=== PATIENT | male | born 1960 | race Caucasian/White ===

== ENCOUNTER 2022-09-08 15:15 | Outpatient (CLI) | payer BC ==
[2022-09-08 15:42] LABS: BASOPHILS % (AUTO) 0.8 %; EOSINOPHILS # (AUTO) 0.1 10^3/uL (0.0-0.7); EOSINOPHILS % (AUTO) 1.9 %; HCT - HEMATOCRIT 43.8 % (42.0-52.0); LYMPHOCYTES # (AUTO) 1.2 10^3/uL (1.5-3.5); LYMPHOCYTES % (AUTO) 24.7 %; MEAN CORPUSCULAR HEMOGLOBIN 27.5 pg (27.0-31.0); MEAN CORPUSCULAR VOLUME 85.9 fL (80.0-94.0); MEAN PLATELET VOLUME 9.8 fL (7.4-11.4); MONOCYTES # (AUTO) 0.4 10^3/uL (0.0-1.0); NEUTROPHILS # (AUTO) 3.1 10^3/uL (1.5-6.6); NEUTROPHILS % (AUTO) 64.6 %; PLT - PLATELET COUNT 271 10^3/uL (130-450); RED CELL DISTRIBUTION WIDTH 14.5 % (12.0-15.0); WHITE BLOOD COUNT 4.7 x10^3/uL (4.8-10.8)
[2022-09-08 16:03] LABS: ALBUMIN 4.3 g/dL (3.2-5.5); ALBUMIN/GLOBULIN RATIO 1.1 (1.0-2.2); ALKALINE PHOSPHATASE 64 IU/L (42-121); ALT ALANINE AMINOTRANSFERASE 16 IU/L (10-60); AST ASPARTATE AMINOTRANSFERASE 12 IU/L (10-42); BILIRUBIN,TOTAL 0.6 mg/dL (0.2-1.0); BUN - BLOOD UREA NITROGEN 25 mg/dL (6-20); CALCIUM 9.5 mg/dL (8.5-10.3); CARBON DIOXIDE - CO2 26 mmol/L (21-32); CHLORIDE 104 mmol/L (101-111); CHOL/HDL RATIO 3.8 (<5.0); CHOLESTEROL 141 mg/dL; CK- CREATINE KINASE 104 IU/L (30-223); CREATININE 0.9 mg/dL (0.6-1.3); GFR - MDRD 86 (>89); GLUCOSE 96 mg/dL (74-104); HDL CHOLESTEROL 37 mg/dL; LDL CHOLESTEROL,CALCULATED 84 mg/dL; LDL/HDL RATIO 2.3 (<3.6); POTASSIUM 4.2 mmol/L (3.5-4.5); SODIUM 137 mmol/L (135-145); TOTAL PROTEIN 8.1 g/dL (6.4-8.9); TRIGLYCERIDES 100 mg/dL (48-352); VLDL CHOLESTEROL 20 mg/dL
[2022-09-08 16:15] LABS: THYROID STIMULATING HORMONE 1.11 uIU/mL (0.34-5.60)
[2022-09-08 16:23] LABS: RHEUMATOID FACTOR NEGATIVE (Negative)
--- NOTE | 2022-09-08 18:17 | XRAY Report ---
PROCEDURE: Hand 2 View BILAT INDICATIONS: POLYARTHRALGIA, PSORIASIS TECHNIQUE: 2 views of the bilateral hand(s) acquired. COMPARISON: None. FINDINGS: Bones: Bilateral periarticular osteopenia. Bilateral radiocarpal joint narrowing. There is degenerat akiko arthritis at the first carpometacarpal joints bilaterally. No erosive changes are identified invo lving the carpal bones. No subluxations. No erosions or joint space loss noted involving the hands. Soft tissues: No suspicious soft tissue calcifications or masses. IMPRESSION: 1. Periventricular osteopenia is freely seen in inflammatory arthritis. 2. Bilateral radiocarpal joint space loss and bilateral degenerative arthritis at the base of the natalia mbs. Reviewed by: Nba Reich MD on 09/08/2022 6:16 PM PDT Approved by: Nba Reich MD on 09/08/2022 6:16 PM PDT Station ID: [id number]
[2022-09-09 22:07] LABS: CYCLIC CITRULLINATED PEP IGG/A 4 units (0-19)
[2022-09-11 15:08] LABS: ANTINUCLEAR ANTIBODIES IFA Negative (.)
== END 2022-09-08 15:16 | disposition home or self-care (01) ==
LOC: DI 15:15
PROVIDERS: ATTEND Physician Assistant
DX: M18.0 Bilateral primary osteoarthritis of first carpometacarpal joints (principal); M85.842 Other specified disorders of bone density and structure, left hand; M85.841 Other specified disorders of bone density and structure, right hand; M19.041 Primary osteoarthritis, right hand; M19.042 Primary osteoarthritis, left hand; L40.9 Psoriasis, unspecified; I10 Essential (primary) hypertension; M79.10 Myalgia, unspecified site; E78.5 Hyperlipidemia, unspecified; M25.50 Pain in unspecified joint
CPT/HCPCS: 36415; 80053; 80061; 82550; 83721; 84443; 85025; 86038; 86200; 86430

== ENCOUNTER 2022-10-17 11:48 | Outpatient (CLI) | payer BC ==
[2022-10-17 12:12] LABS: BASOPHILS % (AUTO) 0.9 %; EOSINOPHILS # (AUTO) 0.1 10^3/uL (0.0-0.7); EOSINOPHILS % (AUTO) 2.2 %; HCT - HEMATOCRIT 42.5 % (42.0-52.0); HGB - HEMOGLOBIN 13.7 g/dL (14.0-18.0); LYMPHOCYTES # (AUTO) 1.1 10^3/uL (1.5-3.5); LYMPHOCYTES % (AUTO) 24.3 %; MEAN CORPUSCULAR HEMOGLOBIN 28.1 pg (27.0-31.0); MEAN CORPUSCULAR HGB CONC 32.2 g/dL (32.0-36.0); MEAN CORPUSCULAR VOLUME 87.1 fL (80.0-94.0); MEAN PLATELET VOLUME 9.5 fL (7.4-11.4); MONOCYTES # (AUTO) 0.3 10^3/uL (0.0-1.0); MONOCYTES % (AUTO) 6.6 %; NEUTROPHILS % (AUTO) 65.8 %; PLT - PLATELET COUNT 211 10^3/uL (130-450); RED BLOOD COUNT 4.88 10^6/uL (4.70-6.10); RED CELL DISTRIBUTION WIDTH 16.4 % (12.0-15.0); WHITE BLOOD COUNT 4.6 x10^3/uL (4.8-10.8)
[2022-10-17 12:39] LABS: ALBUMIN 4.3 g/dL (3.2-5.5); ALBUMIN/GLOBULIN RATIO 1.4 (1.0-2.2); BILIRUBIN,TOTAL 0.6 mg/dL (0.2-1.0); CALCIUM 9.6 mg/dL (8.5-10.3); CRP - C-REACTIVE PROTEIN 1.4 mg/dL (<0.5); POTASSIUM 4.2 mmol/L (3.5-4.5); TOTAL PROTEIN 7.4 g/dL (6.4-8.9)
[2022-10-18 03:09] LABS: HBsAG SCREEN Negative (Negative); HCV AB Non Reactive (Non Reactive)
== END 2022-10-17 11:49 | disposition home or self-care (01) ==
LOC: LAB 11:48
PROVIDERS: ATTEND Internal Medicine Rheumatology
DX: L40.50 Arthropathic psoriasis, unspecified (principal)
CPT/HCPCS: 36415; 80053; 81599; 85025; 85651; 86140; 86480; 86803; 87340

== ENCOUNTER 2022-10-25 10:39 | Outpatient (CLI) | payer BC ==
--- NOTE | 2022-10-25 11:03 | CARDIAC PROCEDURE NOTE ---
Stress Test Report Service Date: 10/25/22 Service Time: 11:00 Ordering Provider: Brooklyn Saha PA-C Indication for Test: Assess for inducible ischemia in a gentleman with atypical chest pain in the setting of psoriatic arthritis and a significant cardiac risk factor profile. 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 He experienced onset of a constant aching substernal chest pressure in early 2022 that lasted for several weeks. Although there was some waxing and waning of the intensity of his discomfort, there has been no correlation with exercise, rather it has been increased by coughing or sneezing. Surveillance EKGs did not show concerning changes. He was seen by his Insurance Loss Control Surveyor, who initiated methotrexate and he describes significant decrease of his general musculoskeletal pains and full resolution, without recurrence, of his chest discomfort. He remains active in his profession and does a lot of hiking in his spare time, including recently to high altitude at [place] last week, without recurrence of symptoms. His history is also notable for a small stroke with PFO reported back in ~2015 with no anticoagulant treatment or consideration for closure of the atrial defect. He also describes increasing fatigue over the past several months and is scheduled for a sleep evaluation to assess him for obstructive sleep apnea. He does not have a bed partner to inform regarding severity of snoring and possible apneas. Cardiac Risk Factors: Positive for history of hypertension and hyperlipidemia (both treated for the past ~1.5 yrs), as well as father with premature CAD (CABG in early 50's) and active pipe smoking of tobacco. Negative for known diabetes. Type of Stress Test: ETT with Echocardiography Procedure: -Exercise Treadmill Test- After signing informed consent, the patient underwent echo imaging at rest and then performed treadmill exercise using a Gerber protocol. The patient exercised for 9 minutes 13 seconds and achieved a peak heart rate of 146 (91 percent predicted maximum heart rate for age), and an estimated workload of 10.5 METS. The test was terminated due to fatigue/shortness of breath. Resting heart rate: 75 Peak heart rate: 146 Normal response to exercise. Resting BP: 112/78 Peak BP: 185/88 Normal BP response to exercise. Rhythm during exercise: Sinus rhythm throughout without detection of ectopic beats. Symptoms: He denied any chest pressure/discomfort/pain whatsoever. EKG at rest showed normal sinus rhythm with possible left atrial abnormality, but otherwise fully normal with interpretable ST/T pattern. EKG at peak stress showed J-point depression with upsloping ST segments, NOT meeting diagnostic EKG criteria for ischemia. In Recovery heart rate and BP rapidly/normally decreased towards resting levels (HR 82, BP 144/71 at 7:00). Echo imaging, performed at rest and with stress, will be reported separately. IWillam MD, was present throughout this treadmill stress study and supervised it in its entirety. Summary: 1) Exercise tolerance above average for age and sex as evidenced by DANDY of -8%. 2) Normal resting EKG. 3) Adequate level of exercise was achieved on this treadmill stress test. 4) Normal BP response to exercise. 5) No ischemic changes by EKG criteria were seen at peak stress. 6) Echo image interpretation reveals normal left ventricular size, wall thickness and systolic function, with appropriate hyperdynamic augmentation of all segments with exercise, indicating no evidence of prior infarct or inducible ischemia. No significant valvular abnormality or elevation of estimated pulmonary artery systolic pressure seen on screening study. See separate report for more details. Conclusions and Recommendations: 1) Reassuring treadmill stress echocardiogram study, without symptom, EKG or echocardiographic evidence of inducible ischemia. 2) Rahul did mention some prior discussion of whether rosuvastatin may have been increasing his MSK discomfort, but with overall decrease in these symptoms following initiation of MTX treatment (and with recent LDLc level successfully lowered to 84) it seems reasonable to keep his daily statin dosing. We discussed that if his mucle achiness should increase in the future for better toleration it may be reasonable to decrease the statin dosing frequency to every other, or even every 3, days, as lipid responses may remain stable along with presumed clinical benefit, due to rosuvastatin's long half-life and durable responses.
== END 2022-10-25 10:40 | disposition home or self-care (01) ==
LOC: DI 10:39
PROVIDERS: ATTEND Physician Assistant
DX: Q21.12 Patent foramen ovale (principal); I20.8 Other forms of angina pectoris; R53.83 Other fatigue; R06.09 Other forms of dyspnea; R06.02 Shortness of breath; L40.50 Arthropathic psoriasis, unspecified; E78.5 Hyperlipidemia, unspecified; I10 Essential (primary) hypertension; K21.9 Gastro-esophageal reflux disease without esophagitis; Z72.0 Tobacco use; Z86.73 Personal history of transient ischemic attack (TIA), and cerebral infarction without residual deficits; Z79.631 Long term (current) use of antimetabolite agent; Z79.899 Other long term (current) drug therapy; Z82.49 Family history of ischemic heart disease and other diseases of the circulatory system
CPT/HCPCS: 93350

== ENCOUNTER 2022-10-25 13:09 | Outpatient (CLI) | payer BC ==
--- NOTE | 2022-10-25 13:46 | Sleep Patient Instructions ---
Sleep Center Visit Summary - Patient Visit Information Reason for Visit: Initial consult for evaluation of sleep disordered breathing and other sleep issues. - Patient Instructions Instructions Attached: Sleep Study, Sleep Clinic Visit, Sleep Study Home Monitor Additional Instructions: You will be completing a sleep study, either an in-lab polysomnography (PSG) or home sleep study (HST). You will follow-up in the sleep care office after the sleep study is completed to hear the results and talk about therapy, if needed. You will be called by our office staff to schedule this appointment, but you may contact us with any questions. - Clinic Information Contact: [facility] [address] [place] [address] [email or web address] T: [phone]
--- NOTE | 2022-10-25 13:52 | SLEEP CARE CONSULTATION ---
Information from patient questionnaire entered by Carol Ann Luna. I have reviewed and concur with the information entered by Carol Ann Luna. This document represents the service I personally performed and the decisions made by me, Indira Field ARNP. History of Present Illness Service Date and Time: 10/25/2022 1309 Reason for Visit: New patient Chief Complaint: reports: Excessive daytime sleepiness, Fatigue, Frequent awakenings at night Date of Onset: 2YRS Usual bedtime: 930PM Time it takes to fall asleep: 2MIN Snores at night: Yes Observed to quit breathing while asleep: No Number of times waking at night: 2-3 Reasons for waking at night: reports: Gasping for air (only when sitting in his truck; not in his bed; he uses a neck rolled pillow to sleep with in bed), Bathroom, Other (UNKNOWN; "to worry"). denies: Choking Toss, Turn, or Twitch while sleeping: No Recalls having dreams: Yes (1 vivid dream monthly) Usually gets out of bed at: 6AM Feels refreshed in the morning: No Morning headache: No Sleepy or fatigued during the day: Yes Ever fallen asleep while driving: No (some drowsy driving; no accidents) Takes day naps: Yes (2-3 weekly; for about 20 minutes) Dreams during day naps: No Prior sleep studies: No Additional HPI information: I had the pleasure of seeing EDOUARD ESPOSITO today regarding the possibility of him having a sleep disorder. His current complaints are excessive daytime sleep iness, fatigue and frequent night awakenings. Since the beginning of year or more, he has been having body aches, fatigue and daytime sleepiness. He has been told that he snores but no one has noted pauses in breathing. He saw his doctor and was set up with some evaluations, this being one of them. He was diagnosed with psoriatic arthritis and was started on methotrexate which has greatly improved his body pains. He is still very tired and fatigued throughout the day. He would take a nap every day if he could but only manages 20 minute naps 2-3 days a week. He does not wake up feeling refreshed in the mornings. He does get drowsy driving but always pulls over and has never had an accident. - Parasomnia Symptoms Ever been unable to move upon waking from sleep: Yes (occasional, will cause yelling in his sleep) Walks in sleep: No Talks in sleep: Yes (with vivid dreams) Ever acted out dreams in sleep: No Ever felt weak in the knees when startled or emotional: Yes (a few times; felt legs get weaking; thinks he fell once) Bothered by creepy, crawly, restless sensations in legs: No Problems with memory or concentration: Yes ("getting scatter brained") Subjective Initial [place] Sleepiness Scale score: 21 (10/25/22) Past Medical History Past Medical History: reports: Hypertension, Arthritis (psoriatic arthritis), Other (high cholesterol) Social History 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 Patient is Single and lives in . Have you smoked in the past 12 months: No Alcohol use: Yes Alcohol amount and frequency: 5 A WEEK Caffeine use: Yes Caffeine amount and frequency: COFFEE AM TEA PM 1 EACH A DAY Family History Family history of sleep disordered breathing: No Allergies and Home Medications Known drug allergies: No Drug allergies reviewed: Yes Home medication list reviewed: Yes Allergy and home medication list: Allergies No Known Drug Allergies Allergy (Verified 10/25/22 13:23) Home Medications Folic Acid See Rx Instructions .ROUTE .COMPLEX 10/25/22 [History] Lisinopril [Zestril] See Rx Instructions .ROUTE .COMPLEX 10/25/22 [History] Twisp [Twisp Carbonate] See Rx Instructions .ROUTE .COMPLEX 10/25/22 [History] Methotrexate [Methotrexate Sodium] See Rx Instructions .ROUTE .COMPLEX 10/25/22 [History] Mv-Min/Folic/K1/Lycopen/Lutein [Centrum Silver Men Tablet] See Rx Instructions .ROUTE .COMPLEX 10/25/22 [History] Naproxen Sodium [Aleve] See Rx Instructions .ROUTE .COMPLEX 10/25/22 [History] Rosuvastatin Calcium [Crestor] See Rx Instructions .ROUTE .COMPLEX 10/25/22 [History] Review of Systems Cardiovascular: reports: high blood pressure Respiratory: denies: shortness of breath Gastrointestinal: denies: heartburn Urinary: reports: frequency Psychiatric: denies: anxiety, depression Ear/Nose/Throat: reports: injury to nose (broken nose several times in past), wisdom teeth removed. denies: tonsillectomy Endocrine: reports: increased urination Musculoskeletal: reports: joint pain, joint swelling Physical Exam Vital signs obtained and entered by: CAROL ANN Ortega MA Blood Pressure: 108/64 (LEFT ARM) Cuff size: long Heart Rate: 86 O2 Saturation: 93 Height: 5 ft 10 in Weight: 215 lb 3.2 oz Body Mass Index: 30.9 BMI Classification: Obese Neck circumference: 17 Mouth and throat: narrow oropharynx Soft palate: long Hard palate: normal Uvula: long Uvula visualization: 50% Mallampati Class II Tongue: normal in size Tonsils: small Neck: normal w/o lymphadenopathy or thyromegaly Heart: regular rate and rhythm Lungs: clear bilaterally Impression and Plan 1. Suspected Obstructive Sleep Apnea-Hypopnea Syndrome, as suggested by a history of loud and irregular snoring, frequent awakening during the night, unrefreshed sleep, cognitive impairment, and excessive daytime sleepiness. Narrow oropharynx and obesity are common predisposing factors for obstructive sleep apnea-hypopnea syndrome. I recommend proceeding to polysomnography to confirm the diagnosis and to assess severity. If the patient has significant sleep disordered breathing, a manual CPAP titration study will also be performed to find the optimal treatment pressure. I informed the patient of what the sleep studies involve and after some discussion, obtained agreement to proceed. The pathophysiology of obstructive sleep apnea-hypopnea syndrome was discussed with the patient and health risks of cardiovascular and cerebrovascular disease if not treated. Risks of drowsy driving discussed in detail and patient advised to avoid long distance driving and to pull out operator at the first sign of drowsiness. Patient agreed to plan. * Schedule polysomnography. * Avoid long distance driving or driving when feeling sleepy. * Avoid alcohol, sedative and muscle relaxant around bedtime. * Attempt to lose weight. * Review instructions provided by trained office staff on how to prepare for the sleep study. * Return for follow-up after sleep study completed. Counseling Topics: Weight loss health impact Visit Type: In Office Time Spent with Patient (minutes): 30 Provider Statement: I spent 100% of the Face to Face Visit with the patient with greater than 50% spent counseling the patient and coordination of care.
[2022-10-25 14:00] VITALS: BP 108/64; O2SAT 93
== END 2022-10-25 13:10 | disposition home or self-care (01) ==
LOC: SC 13:09
PROVIDERS: ATTEND Nurse Practitioner Family
DX: G47.10 Hypersomnia, unspecified (principal); R53.83 Other fatigue; G47.8 Other sleep disorders; E66.9 Obesity, unspecified; R06.83 Snoring; I10 Essential (primary) hypertension; Z68.30 Body mass index [BMI] 30.0-30.9, adult; Q21.12 Patent foramen ovale; I20.8 Other forms of angina pectoris; R06.09 Other forms of dyspnea; R06.02 Shortness of breath; L40.50 Arthropathic psoriasis, unspecified; E78.5 Hyperlipidemia, unspecified; K21.9 Gastro-esophageal reflux disease without esophagitis; Z72.0 Tobacco use; Z86.73 Personal history of transient ischemic attack (TIA), and cerebral infarction without residual deficits; Z79.631 Long term (current) use of antimetabolite agent; Z79.899 Other long term (current) drug therapy; Z82.49 Family history of ischemic heart disease and other diseases of the circulatory system
CPT/HCPCS: 93350; 99203; 99212

== ENCOUNTER 2022-11-11 14:32 | Outpatient (CLI) | payer BC | END 2022-11-11 14:33 | disposition home or self-care (01) | LOC: SC 14:32 | PROVIDERS: ATTEND Nurse Practitioner Family | DX: G47.33 Obstructive sleep apnea (adult) (pediatric) (principal); R09.02 Hypoxemia; E66.9 Obesity, unspecified; Z68.30 Body mass index [BMI] 30.0-30.9, adult | CPT/HCPCS: 95806 ==

== ENCOUNTER 2023-01-13 14:29 | Outpatient (CLI) | payer BC ==
--- NOTE | 2023-01-13 14:57 | SLEEP CARE CONSULTATION ---
Information from patient questionnaire entered by Sailaja Luna. I have reviewed and concur with the information entered by Sailaja Luna. This document represents the service I personally performed and the decisions made by , Indira Field ARNP. History of Present Illness Service Date and Time: 01/13/20231428 Initial [place] Sleepiness Scale score: 21 (10/25/22) Current [place] Sleepiness Scale score: 17 (01/13/23) Additional HPI information: EDOUARD ESPOSITO returns via video appointment for follow up and results of the recently performed home sleep study. The sleep study showed moderate obstructive sleep apnea with an average AHI of 20.9 and shira oxygen saturation of 82%. I explained the pathophysiology behind obstructive sleep apnea. We then spent quite a bit of time discussing different treatment options. For mild ob structive sleep apnea, surgery and oral appliance are alternatives to nasal CPAP therapy but in moderate or severe cases, nasal CPAP is the most effective and reliable treatment. I reviewed the impact of weight changes on sleep apnea and strongly recommended losing weight. After some discussion, the patient opted to go with the nasal CPAP therapy. Nasal autoCPAP set at 4-15 cmH20 will be ordere d with rationale explained. A manual titration study will be ordered if unable to find optimal pressure with office adjustments. I explained how CPAP machine works and what to expect when using the machine. Using CPAP every night in order to get used to it was emphasized. Patient advised to put CPAP mask on before getting into bed so as not to fall asleep without CPAP. To assist acclimation to CPAP use, it could also be used for a short time during day while reading or watching TV. The patient was instructed to call the CPAP supplier to discuss any mechanical problem that may occur. If the mask given is uncomfortable or is difficult to keep on through the night even with adjustment, contact the CPAP supplier as many will replace with another mask style if notified before 30 days. If snoring or perceives is not getting enough air or too much air from the machine, notify this office. Patient counseled not drink alcohol less than 4 hours before bedtime as it can increase snoring and apnea. Patient was cautioned about risks of drowsy driving until sleepiness symptoms resolve. Sleep Study - Results Type of Sleep Study: Home sleep study (COMPLETED 11/13/22) Prior sleep studies: No Polysomnography/Home Sleep Study results: Physician Impression: The quality of the study is good. The length of the study is adequate (> 240 minutes). Please also see the tabulated and graphic data. 1. Obstructive Sleep Apnea-Hypopnea (ICD-10 G47.33), moderate, with an AHI of 20.9/hr and shira SaO2 of 82%. During the study, the patient had 122 apneas (122 obstructive, 0 central, 0 mixed) and 50 hypopneas. The longest episode lasted 113.0 seconds. The respiratory events occurred more frequently during supine sleep (supine AHI was 32.8 and non-supine, 8.84). 2. Hypoxemia (ICD-10 R09.02), mild, with the lowest oxygen saturation of 82 % and 79.5 minutes with SaO2 under 90%. Baseline oxygen saturation was normal (Average oxygen saturation was 91%). Allergies and Home Medications Known drug allergies: No Drug allergies reviewed: Yes Home medication list reviewed: Yes Allergy and home medication list: Allergies No Known Drug Allergies Allergy Review of Systems Review of systems same as previous: Yes (NO CHANGE) Physical Exam Vital signs obtained and entered by: SAILAJA Ortega MA Height: 5 ft 9 in (PER PT) Weight: 210 lb (PER PT) Body Mass Index: 31.0 BMI Classification: Obese Impression and Plan 1. Obstructive Sleep Apnea-Hypopnea Syndrome, moderate, with lowest oxygen saturation of 82%. Obviously this is the cause of the patients symptoms of unrefreshed sleep, and excessive daytime sleepiness. Positive pressure therapy could benefit hypertension. As mentioned above, the patient will be started on nasal autoCPAP therapy with pressure set at 4-15 cmH2O. A manual titration study will be completed if unable to find optimal treatment pressure with office adjustments. Compliance guidelines also reviewed. A copy of compliance guidelines will be given for reference at check out. Because the apnea is more severe supine, I instructed to avoid sleeping supine using pillow positioning until able to start CPAP use. 2. Hypoxemia, mild, with a shira oxygen saturation of 82% and 79.5 minutes spent under 90%. The baseline oxygen saturation was normal with an average oxygen saturation of 91%. 3. Obesity, unspecified. Currently patients BMI is 31. Obesity increases the risk of apnea, CPAP pressure requirements and overall health risks especially cardiovascular and diabetes. Thus patient is advised to lose weight. * Nasal auto CPAP therapy, pressure at 4-15 cm H2O. * Attempt to lose weight. * Avoid alcohol consumption near bedtime. * Avoid supine sleep until using CPAP. * The patient is again cautioned about driving until sleepiness completely resolves. * Return one month after CPAP obtained. I will assess response to therapy and compliance at that time. Counseling Topics: Sleeping position, Weight loss health impact Prescriptions: Auto CPAP Visit Type: Telehealth Video Video Type: Doximity Patient Location: in Car Location of Provider: Office Patient agrees and consents to this telehealth visit type: Yes Patient agrees to have their insurance billed: Yes Time Spent with Patient (minutes): 16 Provider Statement: I spent 100% of the Telehealth Video Call with the patient with greater than 50% spent counseling the patient and coordination of care.
== END 2023-01-13 14:30 | disposition home or self-care (01) ==
LOC: SC 14:29
PROVIDERS: ATTEND Nurse Practitioner Family
DX: G47.33 Obstructive sleep apnea (adult) (pediatric) (principal); R09.02 Hypoxemia; E66.9 Obesity, unspecified; Z68.31 Body mass index [BMI] 31.0-31.9, adult

== ENCOUNTER 2023-06-20 10:06 | Outpatient (CLI) | payer BC ==
[2023-06-20 10:22] LABS: BASOPHILS % (AUTO) 0.6 %; EOSINOPHILS # (AUTO) 0.1 10^3/uL (0.0-0.7); EOSINOPHILS % (AUTO) 1.7 %; HGB - HEMOGLOBIN 15.1 g/dL (14.0-18.0); LYMPHOCYTES # (AUTO) 1.1 10^3/uL (1.5-3.5); LYMPHOCYTES % (AUTO) 22.9 %; MEAN CORPUSCULAR HEMOGLOBIN 29.4 pg (27.0-31.0); MEAN CORPUSCULAR HGB CONC 32.1 g/dL (32.0-36.0); MEAN CORPUSCULAR VOLUME 91.4 fL (80.0-94.0); MEAN PLATELET VOLUME 9.7 fL (7.4-11.4); MONOCYTES # (AUTO) 0.4 10^3/uL (0.0-1.0); MONOCYTES % (AUTO) 8.1 %; NEUTROPHILS # (AUTO) 3.1 10^3/uL (1.5-6.6); NEUTROPHILS % (AUTO) 66.3 %; PLT - PLATELET COUNT 216 10^3/uL (130-450); RED BLOOD COUNT 5.14 10^6/uL (4.70-6.10); RED CELL DISTRIBUTION WIDTH 15.1 % (12.0-15.0); WHITE BLOOD COUNT 4.7 x10^3/uL (4.8-10.8)
[2023-06-20 10:39] LABS: ALBUMIN 4.4 g/dL (3.2-5.5); ALBUMIN/GLOBULIN RATIO 1.3 (1.0-2.2); BILIRUBIN,TOTAL 0.8 mg/dL (0.2-1.0); CALCIUM 9.9 mg/dL (8.5-10.3); POTASSIUM 4.3 mmol/L (3.5-4.5); TOTAL PROTEIN 7.8 g/dL (6.4-8.9)
== END 2023-06-20 10:07 | disposition home or self-care (01) ==
LOC: LAB 10:06
PROVIDERS: ATTEND Internal Medicine Rheumatology
DX: L40.50 Arthropathic psoriasis, unspecified (principal)
CPT/HCPCS: 36415; 80053; 85025; 85651